=== PATIENT | male | born 1960 | race African-American/Black ===

== ENCOUNTER 2018-08-14 15:38 | Emergency (ER) | payer SELFPAY ==
[~2018-08-14] VITALS: Ht 193 cm; Wt 106.8 kg
[2018-08-14 15:48] VITALS: Ht 193 cm; Wt 106.8 kg
[2018-08-14] MEDS ORDERED: PEPCID AC20 MG PO (16:20)
[2018-08-14] MEDS ORDERED: PREDNISONE10 MG PO (16:20)
[2018-08-14 16:46] VITALS: BP 144/89
== END 2018-08-14 16:47 | disposition home or self-care (01) ==
LOC: D.ER 15:38
DX: L25.9 Unspecified contact dermatitis, unspecified cause (principal)

== ENCOUNTER 2018-09-12 14:48 | Emergency (ER) | payer MEDICAID ==
[~2018-09-12] VITALS: Ht 193 cm; Wt 106.4 kg
[~2018-09-12 14:48] MED LIST: PEPCID AC20 MG PO; PREDNISONE10 MG PO
[2018-09-12 14:53] VITALS: Ht 193 cm; Wt 106.4 kg
[2018-09-12 16:09] LABS: APPEARANCE CLEAR (CLEAR); BILIRUBIN NEGATIVE (NEGATIVE); COLOR YELLOW (YELLOW); GLUCOSE NEGATIVE (NEGATIVE); KETONE MODERATE mg/dL (NEGATIVE); NITRITE NEGATIVE (NEGATIVE); PROTEIN NEGATIVE (NEGATIVE); UROBILINOGEN NORMAL (NORMAL)
[2018-09-12 16:13] LABS: BACTERIA FEW /hpf (NONE SEEN); EPITHELIAL CELLS 0-5 /hpf (0-5); RED CELLS - URINE 0-5 /hpf (0-5); WHITE CELLS - URINE 0-5 /hpf (0-5)
[2018-09-12 16:29] LABS: BASOPHILS 0.1 % (0-2); EOSINOPHILS 0.1 % (0-7); HEMOGLOBIN 14.8 g/dL (13.5-17.5); IMMATURE GRANULOCYTES 0.5 % (0-5); LYMPHOCYTES 9.3 % (15-50); MCH 27.7 pg (26.0-34.0); MCHC 34.4 g/dL (31.0-37.0); MCV 80.5 fL (80.0-100.0); MEAN PLATELET VOLUME 9.5 fL (7.4-10.4); MONOCYTES 5.7 % (2-11); NEUTROPHILS 84.3 % (40-80); PLATELET COUNT 230 10x3/uL (130-400); RBC 5.34 10x6/uL (4.20-6.10); RDW 13.9 % (11.5-14.5)
[2018-09-12 16:54] LABS: ALBUMIN 4.2 g/dL (3.4-5.0); ANION GAP 18.4 mmol/L (8-16); BILIRUBIN - TOTAL 0.39 mg/dL (0.2-1.3); CALCIUM 9.2 mg/dL (8.5-10.1); CARBON DIOXIDE 23.5 mmol/L (21.0-32.0); CREATININE - SERUM 1.2 mg/dL (0.6-1.3); POTASSIUM - SERUM 3.9 mmol/L (3.5-5.1); PROTEIN - SERUM 8.6 g/dL (6.4-8.2)
[2018-09-12] MEDS ORDERED: PHENERGAN25 M1 PO (18:08)
[2018-09-12 19:55] VITALS: BP 122/79
== END 2018-09-12 19:55 | disposition home or self-care (01) ==
LOC: D.ER 14:48
PROVIDERS: Emergency Medicine
DX: E86.0 Dehydration (principal); R25.2 Cramp and spasm; F17.200 Nicotine dependence, unspecified, uncomplicated

== ENCOUNTER 2021-03-11 07:27 | Emergency (ER) | payer BC ==
[~2021-03-11] VITALS: Ht 193 cm; Wt 113.6 kg
[~2021-03-11 07:27] MED LIST changes: +PHENERGAN25 M1 PO
[2021-03-11 07:30] VITALS: BP 165/67; Ht 193 cm; Wt 113.6 kg
[2021-03-11] MEDS ORDERED: HYDROCODONE-AC1 EAC2 PO (08:02)
== END 2021-03-11 08:35 | disposition home or self-care (01) ==
LOC: D.ER 07:27
DX: S62.632A Displaced fracture of distal phalanx of right middle finger, initial encounter for closed fracture (principal); S61.212A Laceration without foreign body of right middle finger without damage to nail, initial encounter; W23.0XXA Caught, crushed, jammed, or pinched between moving objects, initial encounter; Y93.9 Activity, unspecified; Y92.9 Unspecified place or not applicable

== ENCOUNTER 2021-04-25 05:00 | Day surgery (SDC) | payer MEDICAID ==
[~2021-04-25] VITALS: Ht 193 cm; Wt 114.8 kg
--- NOTE | ~2021-04-25 | OP ---
PATIENT NAME: JAZLYN RICKS MEDICAL RECORD: [id number] :64 LOCATION:[facility] ADMISSION DATE: SURGEON: SALAZAR MCDONOUGH MD DATE OF OPERATION: 04/25/2021 PREOPERATIVE DIAGNOSIS: Left carpal tunnel syndrome. POSTOPERATIVE DIAGNOSIS: Left carpal tunnel syndrome. PROCEDURE PERFORMED: Left carpal tunnel release. INDICATIONS FOR THE PROCEDURE: Mr. Ricks is a 60-year-old male with history of left hand pain and numbness. We have been treating him for carpal tunnel syndrome, but he continues to have symptoms and is having weakness in his hand. He has elected to proceed with surgery for left carpal tunnel release. Risks, benefits and alternatives of surgery were discussed with the patient including but not limited to pain, infection, bleeding, damage to surrounding structures, particularly the median nerve and potential need for further surgery. All questions were answered and consent was obtained. DESCRIPTION OF THE PROCEDURE: The patient was met in the holding area where his identity and confirmation of procedure was performed. The left upper extremity was marked and he was taken to the operating room where he was placed supine on the operating table and anesthesia was administered. Tourniquet was applied to the left arm and left arm was prepped and draped in a sterile fashion. The patient received preoperative antibiotics and timeout was performed prior to initiating the case. On initiation of the case, the arm was exsanguinated and the tourniquet was raised. Total tourniquet time was 9 minutes. An incision was made over the carpal tunnel in line with the fourth ray. We dissected down through the skin and subcutaneous tissue to the transverse carpal ligament. It was then incised longitudinally and a freer was inserted. We continued our release distally until the ligament was completely released. We then turned and continued our release proximally under direct visualization. Once the ligament was completely released, the carpal tunnel was explored. There was extensive synovitis throughout the carpal tunnel. There was flattening of the median nerve. No other abnormalities. Wound was irrigated thoroughly with saline. A 0.25% plain Marcaine was injected in the subcutaneous tissues. The wound was closed with 4-0 Prolene suture and a sterile dressing was applied. The patient was turned back over to anesthesia where he was awakened and taken to recovery room in stable condition. POSTOPERATIVE PLAN: The patient is going to return home with his family. He is to avoid any strenuous physical activity with the left hand for about the next 4 weeks. We will see him back in clinic in 2 weeks. COMPLICATIONS: None. ESTIMATED BLOOD LOSS: 5 mL. ANESTHESIA: General. TRANSINT:[id number] Voice Confirmation ID: [id number] DOCUMENT ID: [id number] OPERATIVE REPORT [id number] JAZLYN RICKS BRENT M MD CC: [id number] DICTATION DATE: 04/25/21 0757 MANDOLIN REPAIRER: 04/25/21 0813 [place] [id number] [place] [id number]
[~2021-04-25 05:00] MED LIST changes: +ASPIRIN81 MG PO; +HYDROCODONE-AC1 EAC2 PO; +HYDROXYZINE HCL50 MG PO; +NEURONTIN 300300 MG PO; +SINGULAIR10 MG PO; +WELLBUTRIN XL150 M1 PO
[2021-04-25 06:15] VITALS: Ht 193 cm; Wt 114.8 kg
--- NOTE | 2021-04-25 08:17 | NUR ---
1.5 GRAM OF VANCOMYCIN IN 200CC OF NORMAL SALINE IN FUSING ON ADMIT TO RR
--- NOTE | 2021-04-25 09:41 | NUR ---
09 IV DC'D. CATHETER TIP INTACT. NO BLEEDING AT SITE. COBAN DRESSING APPLIED. 925 DISCHARGE INSTRUCTIONS REVIEWED WITH PT AND HIS WHO BOTH VOICE UNDERSTANDING OF INSTRUCTIONS.
== END 2021-04-25 09:35 | disposition home or self-care (01) ==
LOC: D.OPS 05:00
PROVIDERS: ATTEND Orthopaedic Surgery
DX: G56.02 Carpal tunnel syndrome, left upper limb (principal); S67.195A Crushing injury of left ring finger, initial encounter